=== PATIENT | female | born 1935 | race Caucasian/White ===

== ENCOUNTER 2016-10-26 19:56 | Emergency (ER) | payer MEDICARE, OTHER ==
[~2016-10-26 19:56] MED LIST: CIPR-9 PO; LOSA25TA PO; OMEP20TA PO; PRAV20TA2 PO; WARF-20 PO; ZANT150T2 PO
[2016-10-26 20:09] VITALS: BP 208/87; PULSE 68; RESP 20; TEMP 98.2; O2SAT 98
[2016-10-26] MEDS ORDERED: LORA-373 PO (23:14)
[2016-10-26] MEDS ORDERED: DENO60P SQ (23:17)
--- NOTE | 2016-10-26 23:36 | PD ---
HPI Chief Complaint: Fall Time Seen by Provider: 23:12 Travel History International Travel<30 days: No Contact w/Intl Traveler<30days: No Traveled to known affect area: No History of Present Illness HPI 81yo F with PMH of Parkinson's disease, PE/DVT on coumadin presents to the ED with c/o left shoulder and left hip pain s/p fall from standing at 6:30pm today. Pt was not suppose to get up herself and walk because of her parkinson' s but she got up and tried to walk herself so she fell on her left side. Pt with hematoma on left shoulder and hip. Denies any LOC, chest pain, sob, n/v, abdominal pain, weakness or numbness. PFSH Past Medical History Hx Anticoagulant Therapy: Yes (COUMADIN) Anemia: Yes (FROM GI BLEEDS) Arthritis: Yes Asthma: No Blood Disorders: No Anxiety: Yes Depression: Yes Heart Rhythm Problems: No Cancer: Yes (SKIN) Cardiac Catheterization: Yes (NO STENTS) Cardiovascular Problems: No High Cholesterol: Yes Chest Pain: Yes (DUE TO PULMONARY EMBOLUS) Congestive Heart Failure: No COPD: No Cerebrovascular Accident: No Dementia: Yes (EARLY) Diabetes: No Dialysis: No Diminished Hearing: Yes (sioux) Deep Vein Thrombosis: Yes (MULTIPLE IN HER LEGS) Endocrine: No Gastrointestinal Disorders: Yes (GI BLEEDS) Glaucoma: No Genitourinary: No Headaches: No Hepatitis: No Hiatal Hernia: No Hypertension: Yes Immune Disorder: No Musculoskeletal: Yes (OSTEOPOROSIS) Neurologic: Yes Parkinson's Disease: Yes (PSP: PROGRESSIVE SUPRANUCLEAR PALSY) Psychiatric: No Reproductive: No 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) Migraines: No Myocardial Infarction: No Seizures: No Sleep Apnea: No Thyroid Disease: No Ulcer: Yes (GASTRIC) Influenza Vaccination: No ?: Not Menopausal: Yes : 3 Para: 3 Past Surgical History Abdominal Surgery: Yes (CHOLECY; APPY ) AICD: No Appendectomy: Yes Arteriovenous Shunt: No Cardiac Surgery: No Cholecystectomy: Yes Ear Surgery: No Endocrine Surgery: No Eye Surgery: Yes (BILATERAL CATARACTS) Genitourinary Surgery: No Gynecologic Surgery: Yes (HISTERECTOMY) Hysterectomy: Yes Insulin Pump: No Joint Replacement: No Oral Surgery: No Pacemaker: No Thoracic Surgery: No Other Surgery: Yes (SQUAMOUS CELL REMOVAL FROM RIGHT ARM) Social History Alcohol Use: Yes (OCCASIONAL) Tobacco Use: No (QUIT IN HER 60'S) Substance Use: No Allergies-Medications (Allergen,Severity, Reaction): Coded Allergies: Codeine (Verified Allergy, Severe, rash, 10/26/16) Darvocet-N 100 (Verified Allergy, Mild, 10/26/16) RASH Demerol (Verified Allergy, Mild, 10/26/16) RASH Penicillin (Verified Allergy, Mild, 10/26/16) RASH Sulfa (Verified Allergy, Mild, 10/26/16) RASH Darvon (Verified Allergy, Unknown, 10/26/16) RASH Reported Meds & Prescriptions Reported Meds & Active Scripts Active Acetaminophen Extra Strength (Acetaminophen) 500 Mg Cap 500 Mg PO Q6H PRN Reported Prolia Inj (Denosumab) 60 Mg/Ml Inj 60 Mg SQ Q180D Lorazepam 0.5 Mg Tab 0.5 Mg PO HS PRN Losartan (Losartan Potassium) 25 Mg Tab 12.5 Mg PO HS Omeprazole 20 Mg Tab 20 Mg PO DAILY Zantac (Ranitidine HCl) 150 Mg Tab 150 Mg PO BID Warfarin 4 Mg Tab 4 Mg PO HS Pravastatin 20 Mg Tab 20 Mg PO HS Review of Systems Except as stated in HPI: all other systems reviewed are Neg Physical Exam Narrative GENERAL: 81yo F not in acute distress. SKIN: Warm and dry. HEAD: Atraumatic. Normocephalic. EYES: Pupils equal and round. No scleral icterus. No injection or drainage. ENT: No nasal bleeding or discharge. Mucous membranes pink and moist. No hemotympanum or discharge from ears. NECK: +TTP left neck and midline cervical spine. CARDIOVASCULAR: Regular rate and rhythm. No murmur appreciated. RESPIRATORY: No accessory muscle use. Clear to auscultation. Breath sounds equal bilaterally. GASTROINTESTINAL: Abdomen soft, non-tender, nondistended. No rebound tenderness or guarding. MUSCULOSKELETAL: Left shoulder: +Ecchymoses and ttp proximal humerus. Radial pulse 1+. RLE: +Hematoma left hip ttp. Able to flex left hip. DP 2+. NEUROLOGICAL: Awake and alert. No obvious cranial nerve deficits. Motor grossly within normal limits. Normal speech. PSYCHIATRIC: Appropriate mood and affect; insight and judgment normal. Data Data Last Documented VS Vital Signs Date Time Temp Pulse Resp B/P Pulse Ox O2 Delivery O2 Flow Rate FiO2 10/27/16 01:53 86 18 181/91 99 Room Air 10/26/16 20:09 98.2 Orders Basic Metabolic Panel (Bmp) (10/26/16 23:24) Complete Blood Count With Diff (10/26/16 23:24) Prothrombin Time / Inr (Pt) (10/26/16 23:24) Act Partial Throm Time (Ptt) (10/26/16 23:24) Type And Screen (10/26/16 23:24) Chest, Single Ap (10/26/16 23:24) Ct Brain W/O Iv Contrast(Rout) (10/26/16 23:24) Ct Cerv Spine W/O Contrast (10/26/16 23:24) Shoulder, Limited(2vws) (10/26/16 ) Hip, Uni(Ap&Lat) W Ap Pelvis (10/26/16 ) Apply Cervical Collar (10/26/16 23:38) Elbow, Limited (Ap&Lat) (10/26/16 ) Morphine Inj (Morphine Inj) (10/27/16 01:30) Hydralazine Inj (Apresoline Inj) (10/27/16 01:30) Red Blood Cells (Rbc) (10/27/16 00:20) Labs Laboratory Tests Test 10/27/16 00:20 White Blood Count 6.3 TH/MM3 Red Blood Count 4.01 MIL/MM3 Hemoglobin 10.1 GM/DL Hematocrit 31.4 % Mean Corpuscular Volume 78.3 FL Mean Corpuscular Hemoglobin 25.3 PG Mean Corpuscular Hemoglobin 32.3 % Concent Red Cell Distribution Width 14.6 % Platelet Count 233 TH/MM3 Mean Platelet Volume 7.1 FL Neutrophils (%) (Auto) 81.2 % Lymphocytes (%) (Auto) 12.6 % Monocytes (%) (Auto) 5.5 % Eosinophils (%) (Auto) 0.4 % Basophils (%) (Auto) 0.3 % Neutrophils # (Auto) 5.2 TH/MM3 Lymphocytes # (Auto) 0.8 TH/MM3 Monocytes # (Auto) 0.3 TH/MM3 Eosinophils # (Auto) 0.0 TH/MM3 Basophils # (Auto) 0.0 TH/MM3 CBC Comment DIFF FINAL Differential Comment Prothrombin Time 28.9 SEC Prothromb Time International 2.5 RATIO Ratio Activated Partial 39.2 SEC Thromboplast Time Sodium Level 144 MEQ/L Potassium Level 3.7 MEQ/L Chloride Level 109 MEQ/L Carbon Dioxide Level 24.4 MEQ/L Anion Gap 11 MEQ/L Blood Urea Nitrogen 16 MG/DL Creatinine 0.79 MG/DL Estimat Glomerular Filtration 70 ML/MIN Rate Random Glucose 100 MG/DL Calcium Level 9.5 MG/DL Blood Type B POSITIVE Antibody Screen POSITIVE MDM Medical Decision Making Medical Screen Exam Complete: Yes Emergency Medical Condition: Yes Differential Diagnosis ICH vs. fracture vs. contusion Narrative Course 81yo F who is anticoagulated with coumadin here with left shoulder and hip pain s/p fall from standing. Pt denies any headache and had no LOC. No neurologic deficits on exam. Labs reviewed: H/H low at 10.1/31.4 at baseline. BMP unremarkable. INR therapeutic at 2.5. Imagings reviewed: CXR negative. Xray left elbow showed no acute fracture. Xray left hip showed mild osteoarthritis without fracture. Xray left shoulder showed displaced distal left clavicle fracture. Shoulder placed in sling. No open wounds. CT cspine showed no fracture. CT brain showed cerebral atrophy without acute intracranial abnormality. Discussed with daughter who is the health care proxy the option of staying in the hospital for orthopedic consult and observation overnight or discharge to hospice next door for observation and orthopedic follow up as outpatient tomorrow. Daughter would prefer hospice overnight and she will call orthopedic clinic tomorrow for follow up. Pt is under hospice care due to her Parkinson's. Blood pressure improved after morphine 2mg and hydralazine 5mg IV. Pt will be discharge to hospice care center with longterm staff next door. Diagnosis Primary Impression: Clavicle fracture Qualified Code: S42.032A - Closed displaced fracture of acromial end of left clavicle, initial encounter Referrals: Po Mancuso MD 1 day Displaced distal clavicle fracture Patient Instructions: General Instructions Departure Forms: Tests/Procedures Additional Instructions: Please follow up with orthopedic tomorrow. Return to the ED if symptoms worsen. Med/Other Pt SpecificInfo: Prescription(s) given Scripts Acetaminophen (Acetaminophen Extra Strength)500 Mg Pqx142 Mg PO Q6H PRN #20 CAP Ref 0 Prov:Deja Betancur DO 10/27/16 Disposition: 03 DISCHARGE TO SNF Condition: Stable Deja Betancur DO Oct 26, 2016 23:36
--- NOTE | 2016-10-26 23:52 | RADHPO ---
EXAM DATE/TIME: 10/26/2016 23:31 [facility] COMPARISON: No previous studies available for comparison. INDICATIONS : Trauma, fall. Left hip pain. MEDICAL HISTORY : Hypertension. SURGICAL HISTORY : ORIF right hip ENCOUNTER: Initial ACUITY: 1 day PAIN SCORE: 6/10 LOCATION: Left hip FINDINGS: Examination of the left hip was performed with AP Pelvis. The primary and secondary trabecular patte rn of the femoral neck is intact. The mild degenerative changes. Calcification adjacent to the femor al neck could be calcific tendinitis. The acetabulum is grossly intact. CONCLUSION: 1. Mild osteoarthritis without fracture. 2. Possible calcific tendinitis. Kieran Jon MD on October 26, 2016 at 23:50 Board Certified Radiologist. This report was verified electronically.
--- NOTE | 2016-10-26 23:56 | RADHPO ---
EXAM DATE/TIME: 10/26/2016 23:43 [facility] COMPARISON: No previous studies available for comparison. INDICATIONS : Trauma, fall. Left shoulder pain. MEDICAL HISTORY : Hypertension. SURGICAL HISTORY : None. ENCOUNTER: Initial ACUITY: 1 day PAIN SCORE: 6/10 LOCATION: Left upper extremity FINDINGS: Two view examination of the left shoulder demonstrates fracture of the distal clavicle. Displacement of the proximal clavicle extending superiorly 2.3 cm. The glenohumeral joint is intact. Humeral head is normal. Bony mineralization is normal. CONCLUSION: 1. Displaced distal left clavicle fracture. Kieran Jon MD on October 26, 2016 at 23:53 Board Certified Radiologist. This report was verified electronically.
--- NOTE | 2016-10-27 00:09 | RADHPO ---
EXAM DATE/TIME: 10/26/2016 23:50 [facility] COMPARISON: No previous studies available for comparison. INDICATIONS : Trauma, fall. Left arm pain. MEDICAL HISTORY : Hypertension. SURGICAL HISTORY : None. ENCOUNTER: Initial ACUITY: 1 day PAIN SCORE: 4/10 LOCATION: Left elbow FINDINGS: Two view examination of the left elbow demonstrates no joint effusion fracture or dislocation. Bony mineralization is normal. Soft tissue swelling/laceration posteriorly. CONCLUSION: No acute fracture. Soft tissue laceration. Kieran Jon MD on October 27, 2016 at 0:07 Board Certified Radiologist. This report was verified electronically.
--- NOTE | 2016-10-27 00:10 | RADHPO ---
EXAM DATE/TIME: 10/26/2016 23:54 [facility] COMPARISON: CHEST SINGLE AP, September 03, 2016, 12:00. INDICATIONS : Trauma, fall. MEDICAL HISTORY : Hypertension. SURGICAL HISTORY : None. ENCOUNTER: Initial ACUITY: 1 day PAIN SCORE: 0/10 LOCATION: chest FINDINGS: A single view of the chest demonstrates the lungs to be symmetrically aerated without evidence of mas s, infiltrate or effusion. The cardiomediastinal contours are unremarkable. Osseous structures are intact. Old right clavicle fracture. CONCLUSION: No acute disease. Kieran Jon MD on October 27, 2016 at 0:08 Board Certified Radiologist. This report was verified electronically.
[2016-10-27 00:39] LABS: AUTOMATED NEUTROPHIL # 5.2 TH/MM3 (1.8-7.7); BASOPHIL % 0.3 % (0.0-2.0); EOSINOPHIL % 0.4 % (0.0-4.0); HEMATOCRIT 31.4 % (35.0-46.0); HEMO FLAGS DIFF FINAL; LYMPH % 12.6 % (9.0-44.0); LYMPHOCYTE # 0.8 TH/MM3 (1.0-4.8); MEAN CELL VOLUME 78.3 FL (80.0-100.0); MEAN CORPUSCULAR HEMOGLOBIN 25.3 PG (27.0-34.0); MEAN CORPUSCULAR HGB CONC 32.3 % (32.0-36.0); MONO % 5.5 % (0.0-8.0); NEUT % 81.2 % (16.0-70.0); PLATELET COUNT 233 TH/MM3 (150-450); RED BLOOD COUNT 4.01 MIL/MM3 (4.00-5.30); RED CELL DISTRIBUTION WIDTH 14.6 % (11.6-17.2); WHITE BLOOD COUNT 6.3 TH/MM3 (4.0-11.0)
[2016-10-27 00:46] LABS: POTASSIUM 3.7 MEQ/L (3.5-5.1)
[2016-10-27 00:49] LABS: BICARBONATE 24.4 MEQ/L (21.0-32.0)
[2016-10-27 00:51] LABS: APTT (PATIENT) 39.2 SEC (24.3-30.1); INTERNATIONAL NORMALIZED RATIO 2.5 RATIO; PROTHROMBIN TIME - PATIENT 28.9 SEC (9.8-11.6)
[2016-10-27 01:21] VITALS: BP 217/85; PULSE 85; RESP 18; O2SAT 99
[2016-10-27] MEDS ORDERED: MORPHINE SULFATE 4 MG/ML INJ IV PUSH ONE (01:30)
[2016-10-27] MEDS ORDERED: hydrALAZINE HCL 20 MG/ML VIAL IV PUSH ONE (01:30)
--- NOTE | 2016-10-27 01:43 | RADHPO ---
EXAM DATE/TIME: 10/27/2016 00:07 [facility] COMPARISON: CT BRAIN W/O CONTRAST, September 03, 2016, 12:04. INDICATIONS : Trauma, fall. RADIATION DOSE: 61.02 CTDIvol (mGy) MEDICAL HISTORY : Hypertension. SURGICAL HISTORY : None. ENCOUNTER: Initial ACUITY: 1 day PAIN SCALE: 3/10 LOCATION: cranial TECHNIQUE: Multiple contiguous axial images were obtained of the head. Using automated exposure control and adj ustment of the mA and/or kV according to patient size, radiation dose was kept as low as reasonably a chievable to obtain optimal diagnostic quality images. FINDINGS: CEREBRUM: Cerebral atrophy. The ventricles are normal for age. No evidence of midline shift, mass lesion, hemo rrhage or acute infarction. No extra-axial fluid collections are seen. POSTERIOR FOSSA: The cerebellum and brainstem are intact. The 4th ventricle is midline. The cerebellopontine angle i s unremarkable. EXTRACRANIAL: The visualized portion of the orbits is intact. SKULL: The calvaria is intact. No evidence of skull fracture. CONCLUSION: Cerebral atrophy without acute intracranial abnormality. Kieran Jon MD on October 27, 2016 at 1:40 Board Certified Radiologist. This report was verified electronically.
--- NOTE | 2016-10-27 01:44 | RADHPO ---
EXAM DATE/TIME: 10/27/2016 00:07 [facility] COMPARISON: CT CERVICAL SPINE W/O CONTRAST, September 03, 2016, 12:04. INDICATIONS : Trauma, fall. RADIATION DOSE: 26.33 CTDIvol (mGy) MEDICAL HISTORY : Hypertension. SURGICAL HISTORY : None. ENCOUNTER: Initial ACUITY: 1 day PAIN SCALE: 3/10 LOCATION: neck TECHNIQUE: Volumetric scanning of the cervical spine was performed. Multiplanar reconstructions in the sagittal, coronal and oblique axial planes were performed. Using automated exposure control and adjustment o f the mA and/or kV according to patient size, radiation dose was kept as low as reasonably achievable to obtain optimal diagnostic quality images. FINDINGS: VERTEBRAE: Normal vertebral body height. No fracture. Diffuse mild degenerative changes. ALIGNMENT: Minimal anterolisthesis of C6 on C7 and C7 on T1. CONCLUSION: 1. No fracture. 2. Minimal anterolisthesis C6 on C7 and C7 on T1. Kieran Jon MD on October 27, 2016 at 1:41 Board Certified Radiologist. This report was verified electronically.
[2016-10-27 01:53] VITALS: BP 181/91; PULSE 86; RESP 18; O2SAT 99
[2016-10-27] MEDS ORDERED: EXTR500C PO (02:04)
[2016-10-27 02:15] VITALS: BP 194/88; PULSE 82; RESP 16; O2SAT 97
[2016-10-27 02:33] VITALS: BP 149/71; PULSE 78; RESP 16; O2SAT 96
== END 2016-10-27 03:40 | disposition home or self-care (01) ==
LOC: PHED 19:56
DX: S42.032A Displaced fracture of lateral end of left clavicle, initial encounter for closed fracture (principal); M25.552 Pain in left hip; G20 Parkinson's disease; W19.XXXA Unspecified fall, initial encounter
CPT/HCPCS: 70450; 71010; 72125; 73030; 73070; 73502; 80048; 85025; 85610; 85730; 86077; 86850; 86870; 86900; 86901; 86902; 86920; 86922; 96374; 96375; 99284; J0360; J2270